=== PATIENT | male | born 1980 | race Caucasian/White ===

== ENCOUNTER 2017-10-07 15:13 | Emergency (ER) | payer OTHER ==
[~2017-10-07] VITALS: Ht 177.8 cm; Wt 68.0 kg
[2017-10-07 15:41] VITALS: BP 165/92
[2017-10-07] MEDS ORDERED: LR 1000ml 1,000 ML IV STA (15:53)
--- NOTE | 2017-10-07 15:57 | Emergency Room Report ---
History of Present Illness General Chief Complaint: Abdominal Pain Source: Patient Present Illness HPI 37YOM walks in with one week of intermittent abdominal pain, small amount of bowel movement, nausea, unable to tolerate by mouth No previous surg, no recent foreign travel No sick contacts States episodes of severe abd pain that double him over Sent from Urgent Care to "evaluate for SBO" Allergies: Coded Allergies: AMOXICILLIN (Verified Allergy, Unknown, 10/07/17) CEPHALEXIN (Verified Allergy, Unknown, 10/07/17) Patient History Past Medical History: none Past Surgical History: none Pertinent Family History: none Social History: Denies: smoking, alcohol use, drug use Immunizations: UTD Reviewed Nursing Documentation: PMH: Agreed, PSxH: Agreed Nursing Documentation-PMH Past Medical History: No Stated History Review of Systems All Other Systems: negative except mentioned in HPI Physical Exam Vital Signs Date Time Temp Pulse Resp B/P (MAP) Pulse Ox O2 Delivery O2 Flow Rate FiO2 10/07/17 15:31 98.4 43 22 165/92 100 Room Air Sp02 EP Interpretation: reviewed, normal General Appearance: normal inspection, well appearing, no apparent distress, alert, GCS 15, non-toxic Head: normocephalic, atraumatic Eyes: bilateral eye PERRL, bilateral eye EOMI ENT: normal ENT inspection, hearing grossly normal, normal pharynx, no angioedema, normal voice, TMs + canals normal, uvula midline, moist mucus membranes Neck: normal inspection, full range of motion, supple, thyroid normal, no meningismus, no bony tend Respiratory: normal inspection, lungs clear, normal breath sounds, no rhonchi, no respiratory distress, no retraction, no accessory muscle use, no wheezing, speaking full sentences Cardiovascular #1: regular rate, rhythm, no edema, no JVD, normal capillary refill Gastrointestinal: normal inspection, normal bowel sounds, non tender, soft, no mass, no peritonitis, non-distended, no guarding, no hernia, no pulsatile mass Genitourinary: no CVA tenderness Musculoskeletal: normal inspection, back normal, normal range of motion, no calf tenderness, pelvis stable, Lilian's Sign negative Neurologic: normal inspection, alert, oriented x3, responsive, poultry picking machine tender III-XII nml as tested, motor strength/tone normal, cerebellar normal, normal gait, speech normal Psychiatric: normal inspection, judgement/insight normal, mood/affect normal, no suicidal/homicidal ideation, no delusions Skin: normal inspection, normal color, no rash Lymphatic: normal inspection, no adenopathy Medical Decision Making Diagnostic Impression: Primary Impression: Abdominal pain Qualified Codes: R10.84 - Generalized abdominal pain ER Course Generalized abd pain VSS, afebrile Non focal abdomen No previous surgery, hernias, cancer or other concern for SBO Abdomen serially non-focal so Abd 2-series Xray was done which shows normal bowel gas pattern, no air fluid levels to suggest SBO or other surgical process No leukocytosis. Lactate WNL. No LFT abnormality to suggest GB disease Pain resolved with toradol Was able to tolerate PO reglan Has pepcid already from pMD Advised bland diet, pepcid BID, reglan as needed for nausea, pain Close PMD followup Likely has stomach virus, gastroenteritis ER course: Patient has remained stable during ED stay. Disposition: Patient is to be discharged to home. Prescriptions given are reglan Patient is instructed to follow up with their primary care doctor within 5 days. Strict return precautions discussed with patient such as fever, chills, worsening/severe pain, nausea, vomiting, which may indicate severe illness. Patient verbalizes understanding and agrees with plan. Please note that this Emergency Department Report was dictated using [employer] technology software, occasionally this can lead to erroneous entry secondary to interpretation by the dictation equipment Last Vital Signs Date Time Temp Pulse Resp B/P (MAP) Pulse Ox O2 Delivery O2 Flow Rate FiO2 10/07/17 15:41 22 165/92 100 Room Air 10/07/17 15:31 98.4 43 Status: improved Disposition: HOME, SELF-CARE Scripts Metoclopramide Hcl* (REGLAN*) 10 Mg Tablet 10 MG ORAL THREE TIMES A DAY for nausea, stomach pain for 7 Days, #20 TAB Prov: GO SMITH M.D. 10/07/17 GO SMITH M.D. Oct 07, 2017 15:57
[2017-10-07] MEDS ORDERED: Ketorolac 30mg Inj IV ONE (16:00)
[2017-10-07] MEDS ORDERED: Dicyclomine HCl 10mg/5ml oral soln ORAL ONE (16:00)
[2017-10-07 16:23] LABS: APPEARANCE,URINE CLEAR; BILIRUBIN, URINE NEGATIVE (NEGATIVE); COLOR,URINE PALE YELLOW; GLUCOSE, URINE (UA) NEGATIVE (NEGATIVE); KETONES,URINE 2+ (NEGATIVE); LEUKOCYTE ESTERASE ,URINE 1+ (NEGATIVE); NITRITE,URINE NEGATIVE (NEGATIVE); PH,URINE 6.5 (4.5-8.0); PROTEIN,URINE NEGATIVE (NEGATIVE); UROBILINOGEN,URINE NORMAL MG/DL (0.0-1.0)
[2017-10-07 16:25] LABS: BASOPHILS % (AUTO) 0.8 % (0.0-2.0); EOSINOPHILS % (AUTO) 0.5 % (0.0-3.0); HEMATOCRIT 44.6 % (42.0-52.0); HEMOGLOBIN 15.8 G/DL (14.2-18.0); LYMPHOCYTES % (AUTO) 18.7 % (20.0-45.0); MEAN CORPUSCULAR VOLUME 86 FL (80-99); MONOCYTES % (AUTO) 7.6 % (1.0-10.0); NEUTROPHILS % (AUTO) 72.3 % (45.0-75.0); PLATELET COUNT 168 K/UL (150-450); RED BLOOD COUNT 5.18 M/UL (4.70-6.10); RED CELL DISTRIBUTION WIDTH 11.4 % (11.6-14.8); WHITE BLOOD COUNT 7.2 K/UL (4.8-10.8)
[2017-10-07 16:26] LABS: ANION GAP 7 mmol/L (5-15); BLOOD UREA NITROGEN 10 mg/dL (7-18); CALCIUM 9.8 MG/DL (8.5-10.1); CARBON DIOXIDE 29 MMOL/L (21-32); CHLORIDE 102 MMOL/L (98-107); SODIUM 138 MMOL/L (136-145)
[2017-10-07 16:31] LABS: ALANINE AMINOTRANSFERASE 36 U/L (12-78); ALBUMIN 4.4 G/DL (3.4-5.0); ALBUMIN/GLOBULIN RATIO 1.3 (1.0-2.7); ALKALINE PHOSPHATASE 46 U/L (46-116); ASPARTATE AMINO TRANSFERASE 21 U/L (15-37); BILIRUBIN,TOTAL 0.5 MG/DL (0.2-1.0)
[2017-10-07] MEDS ORDERED: REGLAN10 M1 ORAL (17:34)
[2017-10-07] MEDS ORDERED: DiphenhydrAMINE 50mg/ml Inj IVP ONE (17:45)
[2017-10-07 18:14] VITALS: BP 127/75
--- NOTE | 2017-10-08 08:45 | Diagnostic Imaging Report ---
Indication: Elbow pain Technique: XRAY Abdomen 2v Comparison: None Findings: Imaged lung bases are clear. Bowel gas pattern is nonobstructive. No acute osseous abnormality is seen. No radiopaque foreign body identified. Pelvic shield in place. Impression: Nonobstructive bowel gas pattern.
== END 2017-10-07 18:17 | disposition home or self-care (01) ==
LOC: EMR 15:50
DX: R10.84 Generalized abdominal pain (principal); R11.0 Nausea; Z88.0 Allergy status to penicillin
CPT/HCPCS: 36415; 74019; 80053; 80307; 81003; 83605; 83690; 85025; 96361; 96374; 96375; 99284; J0780; J1200; J1885; J2405; J7120; S0028